=== PATIENT | female | born 1945 | race Caucasian/White ===

== ENCOUNTER 2017-04-03 06:48 | Observation (INO) ==
--- NOTE | 2017-04-03 07:07 | Emergency Department Note ---
Jorge A Tucker Hilary, am scribing for, and in the presence of, Cruz Vann MD 07: 03. Soo Tucker James D, MD, personally performed the services described in this documentation, ascribed by Nilsa Jules in my presence, and it is both accurate and complete 706 . Arrival - Arrival Chief Complaint: Chest Pain Stated Complaint: CP transfer ED Nursing Triage Note: Pt transferred from [facility] ER for Chest pain started around 0400 but is pain free now. Pt also had SOB and nausea. Mode of Arrival: Stretcher Limitations: No Limitations Source: Patient, RN Notes Reviewed Time Seen by Provider: 04/03/17 06:57 - History of Present Illness HPI Narrative: Pt is a 71 y/o female brought into the ED via EMS from [facility] ER for c/o chest pain which onset at 0430 but is now resolved. She confirms that the pain was across her chest, SOB, diaphoresis and nausea but denies vomiting. She reports that she has had a stent put in before but this pain was different. No other complaints or problems stated in the ED. Onset (ago): hour(s) Consistency: now resolved Severity: mild Severity scale (1-10): 1 Allergies/Adverse Reactions: Allergies Allergy/AdvReac Type Severity Reaction Status Date / Time phenytoin [From Dilantin] Allergy DIFFICULTY Verified 04/27/16 20:56 SWALLOWING Home Medications: Home Medications Medication Instructions Recorded Confirmed Type Aspirin [Ecotrin] 81 mg PO DAILY 04/27/16 07/16/16 History Escitalopram [Lexapro] 20 mg PO DAILY 04/27/16 07/16/16 History amLODIPine [Norvasc] 10 mg PO DAILY 04/27/16 07/16/16 History clonazePAM [Clonazepam] 1 mg PO BID 04/27/16 07/16/16 History Albuterol Sulfate [Ventolin HFA] 1 - 2 puffs PO Q6HR PRN 07/16/16 07/16/16 History Estradiol Tab [Estrace Tab] 1 tablet PO DAILY 07/16/16 07/16/16 History Losartan Potassium [Cozaar] 1 tablet PO DAILY 07/16/16 07/16/16 History Magnesium Oxide 400 mg PO DAILY 07/16/16 07/16/16 History Nebivolol [Bystolic] 1 tablet PO DAILY 07/16/16 07/16/16 History carBAMazepine TAB [TEGretol TAB] 1 tablet PO Q12HR 07/16/16 07/16/16 History Atorvastatin [Lipitor] 40 mg PO DAILY #30 tablet 07/18/16 Rx Ticagrelor [Brilinta] 90 mg PO BID #60 tablet 07/18/16 Rx HYDROcodone/ACETAMIN 5-325 [[place] 1 tablet PO Q6H #20 tablet 02/12/17 Rx 5-325] Review of System - Review of System 12 point system: reviewed and no additional remarkable complaints except as stated - Review of System Constitutional: Present: diaphoresis. Absent: fever Respiratory: Present: respiratory distress (SOB) Cardiovascular: Present: chest pain Gastrointestinal: Present: nausea. Absent: vomiting Medical,Surgical,& Family Hx - Social History Smoking Status: Former smoker Functional capacity: bed bound Exam Physical Examination: GENERAL: This is a chronically ill appearing female, well-developed in no apparent distress. VITAL SIGNS: Temperature: 98.9 Pulse: 54 Respiratory: 16 Blood Pressure: 148/ 85 O2Sat: 100 HEENT: Head is normocephalic and atraumatic. Pupils are equally round and reactive to light. Extraocular movement are intact. Oropharynx is benign with moist mucous membranes. NECK: Neck is soft and supple without tenderness. There are no masses. There is no lymphadenopathy. LUNGS: Lungs are clear to auscultation bilaterally. Chest rises symmetrically. There is no chest wall tenderness. CV: Heart is regular rate and rhythm without murmurs, rubs, or gallops. ABDOMEN: Abdomen is soft, non-tender to palpation. There are no abnormal masses palpated. There is no organomegaly. Bowel sounds are present and active. SKIN: Skin is warm and dry. No rash. EXTREMITIES: Patient has full range of motion without tenderness. There is no pedal edema. NEUROLOGIC: Awake, alert, and oriented x4. Cranial nerves II through XII are grossly intact. There are no motorsensory deficits. PSYCHIATRIC: Normal affect. Normal mood. Vital Signs: Vital Signs Temperature 98.9 F 04/03/17 06:59 Pulse Rate 54 L 04/03/17 06:59 Respiratory Rate 16 04/03/17 06:59 Blood Pressure 148/85 04/03/17 06:59 O2 Sat by Pulse Oximetry 100 04/03/17 06:51 Course - Consultations Consultation #1: Discussed with Dr. Sanders. Patient will be admitted to his service. Initial orders written for him. He will assume care of the patient upon arrival to the [facility]. Time: 07:06 Results - Labs Lab Results: I have reviewed the patients labs Labs: Lab performed at [facility] reviewed by me. Troponin is negative. - EKG EKG results: interpreted by ERMD - Impressions EKG: Sinus bradycardia with a rate of 53, nonspecific ST-T wave changes, normal axis. Disposition Clinical Impression: Chest pain, Coronary artery disease Case discussed with: patient Disposition: Still a Patient Condition: Stable Time of Disposition: 07:06
--- NOTE | 2017-04-03 08:07 | EKG Report ---
Stationary ECG Study [facility] ER Test Date: 04/03/2017 6:54:40 AM Pat Name: CARL MUHAMMAD Department: Room: EDWAIT Gender: F Nursing Resident: : 1945 Requested by: Cruz Green Order Number: [id number] Reading MD: NAV PEREZ Intervals [place] Rate: 53 P: 60 [place]: 133 QRS: 5 QRSD: 85 T: 73 QT: 449 QTc: 431 Interpretive Statements SINUS BRADYCARDIA MINIMAL ST DEPRESSION, CONSIDER ISCHEMIA Electronically Signed On 04-03-17 09:59:03 CDT by NAV PEREZ [email or web address]
[2017-04-03] MEDS ORDERED: MAGNESIUM SULF RIDER 4 GM in PREMIX 1 EACH IV PRN (08:35)
[2017-04-03] MEDS ORDERED: ONDANSETRON 4 MG/2 ML VIAL IV PRN (08:35)
[2017-04-03] MEDS ORDERED: MORPHINE 2 MG/1 ML SYRINGE IV PRN (08:35)
[2017-04-03] MEDS ORDERED: SODIUM CHLORIDE 0.9% 1,000 ML IV SCH (08:35)
[2017-04-03] MEDS ORDERED: MAGNESIUM SULF RIDER 2 GM in PREMIX 1 EACH IV PRN (08:35)
[2017-04-03] MEDS ORDERED: PANTOPRAZOLE 40 MG TABLET PO SCH (09:00)
--- NOTE | 2017-04-03 09:36 | Cardiology History & Physical ---
<Alcira Rae E - Last Filed: 04/03/17 09:21> Assessment and Plan - Time spent with patient Time spent with patient: Greater than 30 minutes (due to assessment, plan, and documentation) (1) Chest pain Status: Acute Assessment and plan: See plan of care listed below. Current Visit: Yes (2) Coronary artery disease Status: Chronic Assessment and plan: See plan of care listed below. Current Visit: Yes (3) Hypertension Status: Chronic Assessment and plan: See plan of care listed below. Current Visit: No Qualifiers: Hypertension type: essential hypertension Qualified Code(s): I10 - Essential (primary) hypertension (4) Dyslipidemia Status: Chronic Assessment and plan: See plan of care listed below. Current Visit: No (5) Seizure disorder Status: Chronic Assessment and plan: See plan of care listed below. Current Visit: No (6) Nicotine addiction Status: Chronic Assessment and plan: See plan of care listed below. Current Visit: No Qualifiers: Nicotine product type: cigarettes (7) Flea infestation Status: Acute Assessment and plan: See plan of care listed below. Current Visit: Yes History of Present Illness Chief complaint: chest pain History of present illness: Gas Engine Performance Engineer: Dr. Sanders PCP: Dr. Gordon Ms. Carlson is a 71 year old female with history of coronary artery disease, hypertension, hypercholesterolemia, seizure disorder. She is a former heavy smoker having quit in September 2016 following a large right CVA 2015 with intracerebral bleed for which she was treated at [facility] [place] [facility] for 1 month. [place] [address] with mid LAD stent, patent circumflex and RCA, ejection fraction 55-60%. Ms. Carlson presented to our facility as a transfer from [facility] in [place] for further evaluation of chest pain which began around 4: 00 this morning. She reports the pain woke her up and felt as if someone was stabbing her. She reports it lasted for a little over 30 minutes and was relieved with sublingual nitroglycerin. She also woke up feeling short of breath as if "something was grabbing her throat." She also describes associated symptoms of nausea, dizziness, palpitations. She tells me that this pain feels different from the pain that she had before her stent was placed but this time feels a little worse. The patient is very debilitated and is unable to stand without help. She has severe left upper and left lower extremity weakness. She is now wearing diapers and requires the use of a wheelchair frequently at home. Her cardiac biomarkers have been negative thus far and her EKG is unremarkable. Lab work from the outlying facility includes: Hemoglobin 10.1, hematocrit 31.7, white blood cell count 6.84, platelet count 251, sodium 146, potassium 3.6, creatinine 0.6, BUN 14, GFR 105. Assessment/plan: 1. Chest pain - She now presents with symptoms of chest pain and dyspnea. Thus far, she has ruled out for ND. After further discussion with Dr. Sanders, although her symptoms are not completely typical, given her recent history of NSTEMI, we will proceed with Lexiscan stress testing. She is unable to complete exercise stress testing due to recent stroke with left sided weakness. 2. Coronary artery disease - [place] [address] with mid LAD stent, patent circumflex and RCA, ejection fraction 55-60%. She now presents with symptoms of chest pain and dyspnea. Thus far, she has ruled out for ND. Will further discuss further cardiac evaluation with stress testing or C with Dr. Sanders and await his recommendations. 3. Hypertension-currently suboptimally controlled. We will continue home medications, monitor, and adjust accordingly. 4. Hypercholesterolemia -continue lipid-lowering agent. Will recheck lipid panel. 5. Seizure disorder -continue home medications. 6. Former tobacco abuse -in remission, long history of tobacco abuse but has not smoked since her stroke in September 2016. 7. Flea infestation-discuss with infection process control manager Austen Turner. Patient will be placed with Hibiclens and moved to new room while her room is fumigated. Patient's at bedside will be offered Hibiclens bath and change of clothes so as not to reinfect the patient. Will await further recommendations from Dr. Sanders. Home Medications Medication Instructions Recorded Confirmed Type Aspirin [Ecotrin] 81 mg PO DAILY 04/27/16 04/03/17 History Escitalopram [Lexapro] 20 mg PO DAILY 04/27/16 04/03/17 History amLODIPine [Norvasc] 10 mg PO DAILY 04/27/16 04/03/17 History Albuterol Sulfate [Ventolin HFA] 1 - 2 puffs PO Q6HR PRN 07/16/16 04/03/17 History Losartan Potassium [Cozaar] 1 tablet PO DAILY 07/16/16 04/03/17 History carBAMazepine TAB [TEGretol TAB] 1 tablet PO Q12HR 07/16/16 04/03/17 History Atorvastatin [Lipitor] 40 mg PO DAILY #30 tablet 07/18/16 04/03/17 Rx Carvedilol [Carvedilol] 12.5 mg PO BID 04/03/17 04/03/17 History Famotidine 10 mg PO BID 04/03/17 04/03/17 History Ranitidine Tab [Zantac Tab] 75 mg PO BEDTIME 04/03/17 04/03/17 History Allergies Allergy/AdvReac Type Severity Reaction Status Date / Time phenytoin [From Dilantin] Allergy DIFFICULTY Verified 04/27/16 20:56 SWALLOWING Review of systems: - Constitutional: Present: pruritis, As per HPI. Absent: anorexia, chills, daytime sleepiness, excessive sweating, fever(s), frequent falls, headache(s), increased appetite, lethargy, malaise, night sweats, stops breathing during sleep, weakness, weight gain, weight loss, fatigue. - EENT Eyes: Present: As per HPI. Absent: blurry vision, diplopia, loss of vision Ears: Present: As per HPI. Absent: decreased hearing, ear discharge, ear pain Nose, mouth and throat: Present: As per HPI. Absent: dysphagia, epistaxis, headache(s), hoarseness, lip swelling, nasal congestion, neck mass, neck pain, sinus pressure, sore throat, throat swelling, tongue swelling, vertigo - Cardiovascular: Present: chest pain at rest, dyspnea, dyspnea on exertion, edema, palpitations, as per HPI. Absent: chest pain with activity, claudication , diaphoresis, radiating jaw, neck or arm pain, lightheadedness, orthopnea, PND - Respiratory: Present: dyspnea, dyspnea on exertion, snoring, as per HPI. Absent: cough, hemoptysis, wheezing, pain on inspiration - Gastrointestinal: Present: As per HPI. Absent: abdominal pain, bloating, change in bowel habits, constipation, diarrhea, heartburn, hematemesis, hematochezia, loose stools, melena, nausea, vomiting - Genitourinary: Present: As per HPI. Absent: difficulty urinating, dysuria, flank pain, hematuria, nocturia, urinary frequency, urinary incontinence - Musculoskeletal: Present: muscle weakness, As per HPI. Absent: arthralgias, back pain, joint swelling, limited range of motion, muscle cramps, myalgias - Neurological: Present: abnormal gait, dizziness, As per HPI. Absent: abnormal speech, behavioral changes, confusion, convulsions, disequilibrium, focal weakness, frequent falls, headache(s), memory loss, numbness, paresthesias, radicular pain, syncope, tremor(s) - Psychiatric: Present: As per HPI. Absent: anxiety, confusion, depression, panic attacks - Endocrine: Present: As per HPI. Absent: cold intolerance, fatigue, heat intolerance, polydipsia, polyphagia - Hematologic/Lymphatic: Present: As per HPI. Absent: easy bleeding, easy bruising, lymphadenopathy Medical,Surgical,& Family Hx - Medical History Cardio: History of: CAD, Hypertension, ND Neurology: History of: Cerebrovascular Accident, Seizures Endocrine: History of: Dyslipidemia Respiratory: History of: COPD Gastrointestinal: History of: GERD Other: History of: Miscellaneous Medical Problems (Hypoglycemia) - Surgical History Cardiac Surgeries: Sugical HX of: Cardiac Catheterization Abdominal Surgeries: Surgical HX of: Abdominal Surgery (TIERNEY), Appendectomy Reproductive Surgeries: Surgical HX of;: Gynecologic Surgery, Hysterectomy - Family History Family History: Reports;: Family Diabetes (mother), Family Heart Disease (father -cabg), Family Hypertension - Social History Smoking Status: Former smoker Frequency of Alcohol Use: None Type of Drug Use: None Marital Status: Lives With:: Spouse Functional capacity: wheelchair bound Cardiology Physical Exam - Constitutional Vitals: Vital Signs Temp Pulse Resp BP Pulse Ox 97.9 F 55 L 17 155/85 98 04/03/17 08:36 04/03/17 08:36 04/03/17 08:36 04/03/17 08:36 04/03/17 08:36 Intake and Output 04/02/17 04/03/17 04/03/17 22:59 06:59 14:59 Other: Weight 89 lb Exam: General appearance: Pleasant and cooperative. Under weight, no acute distress. Appears feeble and debilitated - Head Head exam: Present: normal inspection, normocephalic, atraumatic. Absent: hematoma, laceration - Eye Eye exam: Present: EOMI. Absent: conjunctival injection, nystagmus, periorbital swelling, scleral icterus, laceration to eyelids Pupils: Present: PERRL. Absent: constricted, dilated, fixed, irregular, unequal - ENT ENT exam: Present: Edentulous, normal external ear exam - Neck Neck exam: Present: normal inspection. Absent: lymphadenopathy, meningismus, tenderness, thyromegaly - Respiratory Respiratory exam: Present: clear to auscultation bilaterally. Absent: accessory muscle use, chest wall tenderness - Cardiovascular Cardiovascular exam: Present: bilateral carotid bruit, regular rate and rhythm. soft systolic murmur Absent: gallop, JVD, rubs, - GI/Abdominal GI/Abdominal exam: Present: normal bowel sounds, soft. Absent: distended, firm , guarding, hernia, mass, tenderness, rebound. - Extremities Exam Extremities exam: Present: normal inspection, normal capillary refill. Upper extremity pulses 2+. Lower extremity pulses 2+. Foot drop to BLE. Absent: calf tenderness, edema -Musculoskeletal Exam Musculoskeletal: Present: No Fluid Collection, No Pain, Normal Range of Motion - Back Exam Back exam: Present: normal inspection. Absent: muscle spasm, vertebral tenderness - Neurological Exam Neurological exam: Present: alert, oriented X3, grossly intact without resting or essential tremor - Psychiatric Psychiatric exam: Present: normal affect, normal mood - Skin Skin exam: Present: normal color, warm, dry, intact. Absent: cyanosis, diaphoretic, rash, urticaria Result/EKG - Labs Lab Results: I have reviewed the past 24 hour labs Labs: Laboratory Results - last 24 hr 04/03/17 07:15 Troponin I < 0.015 - EKG EKG results: interpreted by me, sinus rhythm EKG shows: bradycardia <Jeramy Sanders - Last Filed: 04/03/17 14:58> History of Present Illness History of present illness: Cardiology addendum Chart reviewed patient examined and discussed with nurse Alcira Rae NP. Atypical chest pain. Benign EKG. Negative troponin. That is post mid LAD stent July 2016. RCA and circumflex were patent with normal ejection fraction 55-60%. Status post large intracerebral bleed stroke/September 25, 2016. Former heavy tobacco abuse Seizure disorder Plan Lexiscan cardiac stress test Cardiology Physical Exam - Constitutional Vitals: Vital Signs Temp Pulse Resp BP Pulse Ox 97.8 F 64 18 145/70 96 04/03/17 11:57 04/03/17 11:57 04/03/17 11:57 04/03/17 11:57 04/03/17 11:57 Intake and Output 04/02/17 04/03/17 04/03/17 23:59 07:59 15:59 Other: Weight 40.37 kg Patient Weight 04/03/17 23:59 Weight 40.37 kg Result/EKG - Labs Labs: Laboratory Results - last 24 hr 04/03/17 04/03/17 07:15 09:39 Total Creatine Kinase 44 CK-MB (CK-2) < 1.0 Troponin I < 0.015 < 0.015 Triglycerides 83 Cholesterol 137 LDL Cholesterol 65.0 VLDL Cholesterol 16.6 HDL Cholesterol 53 Heart Disease Risk Ratio 2.58
[2017-04-03 10:26] LABS: Cholesterol 137 MG/DL (50-200); HDL Cholesterol 53 MG/DL (40-60); Risk Ratio 2.58; Triglycerides 83 MG/DL (2-150); Troponin I Only < 0.015 NG/ML (0.00-0.045); VLDL CHOLESTEROL 16.6 MG/DL
[2017-04-03] MEDS ORDERED: REGADENOSON 0.4 MG/5 ML SYRINGE IV ONE (10:48)
--- NOTE | 2017-04-03 11:18 | Event Note ---
Patient underwent nuclear stress testing with Lexiscan Protocol only due to patient's inability to walk from prior CVA. Patient had no chest pain, dizziness , lightheadedness or syncope. She did have some mild dyspnea, nausea, and vomiting. Maximum HR achieved: 97 with THR 150. Patient had no significant EKG changes with appropriate blood pressure response. Patient now to nuclear medicine for final scan. Dr. Sanders to read, interpret, and advise.
--- NOTE | 2017-04-03 14:43 | Nuclear Medicine Report ---
PROCEDURE: LEXISCAN CARDIOLITE GATED SPECT PERFUSION STUDY. INITIAL IMPRESSION: 1. A 71-YEAR-OLD WOMAN WITH ATYPICAL CHEST PAIN. 2. STATUS POST MID LAD STENT. 3. ABNORMAL ELECTROCARDIOGRAM. FINAL IMPRESSION: NORMAL LEXISCAN CARDIOLITE GATED SPECT PERFUSION STUDY. I. DESCRIPTION OF PROCEDURE: The patient received 10.0 mCi of Technetium-99m Cardiolite IV and rest images were obtained in the routine manner 20 minutes later. The patient then received 0.4 mg IV Le xiscan followed by 30.0 mCi of Technetium-99m Cardiolite IV and pharmacologic stress images were obta ined in the routine manner 20 minutes later. Serial electrocardiograms were performed. The initial blood pressure was 100/70 and it was 140/80 immediate post Lexiscan. The resting heart rate was 57 a nd the peak heart rate was 97. II. RESULTS: The patient had no chest pain or arrhythmias and tolerate Lexiscan infusion well. The resting EKG demonstrates sinus bradycardia with preserved R-waves and ST-T wave changes. With pharm acologic stress, no diagnostic EKG changes occurred. No arrhythmias. Tomographic imaging demonstrates homogeneous uptake of radioisotope in all segments. There is no ivory dence for ischemia or scar. Gated SPECT imaging demonstrates normal wall motion and thickening in al l segments. The calculated ejection fraction is 63%. III. FINAL IMPRESSION: 1. CLINICALLY AND ELECTROCARDIOGRAPHICALLY NEGATIVE. 2. SCINTIGRAPHICALLY NORMAL PERFUSION STUDY. IV. DISPOSITION: The patient should be reassured regarding the lack of any evidence for significant coronary artery disease at this time. She had no chest pain or diagnostic EKG changes and tomograph ic imaging is normal. Her LAD stent site from August 2016 remains widely patent. This is a low-ri sk scan. Continued medical therapy, risk factor modification recommended. Her current chest pain is not cardiac in nature. Procedure performed and interpreted at [facility] Department of Radiology.
[2017-04-03] MEDS ORDERED: ASPIRIN EC 81 MG TABLET PO SCH (15:00)
[2017-04-03] MEDS ORDERED: amLODIPine 10 MG TABLET PO SCH (15:00)
[2017-04-03] MEDS ORDERED: ATORVASTATIN 40 MG TABLET PO SCH (15:00)
--- NOTE | 2017-04-03 15:02 | Discharge Summary ---
Hospital Course - Hospital Course Hospital Course: Credit Collections Clerk: Dr. Sanders PCP: Dr. Gordon Ms. Carlson is a 71 year old female with history of coronary artery disease, hypertension, hypercholesterolemia, seizure disorder who presented to our facility as a transfer from [facility] in [place] for further evaluation of chest pain which began around 4:00 this morning. The patient is very debilitated and is unable to stand without help. She has severe left upper and left lower extremity weakness. She is now wearing diapers and requires the use of a wheelchair frequently at home. Her cardiac biomarkers have been negative and her EKG is unremarkable. She underwent Lexiscan stress testing which was found to have a scintigraphically normal perfusion study. Her chest pain she had this morning is non-cardiac in nature. She has had no recurrent pain since. Her vital signs and labwork have been stable. She has now been felt to have met maximum benefit from hospitalization and will be discharged home in stable condition. Of note, during admission, she was found to be infested with fleas. We discussed this with our Infection New Patient Escort, Austen Turner and followed her recommendations regarding treatment. She is to follow up with Dr. Sanders in 3-4 months with EKG. IF she has recurrent pain, she may see her primary care provider or seek further assistance in the emergency department but she can be reassured regarding the lack of any evidence for significant coronary artery disease at this time. - Time spent with patient Time with patient DS: Greater than 30 minutes Diagnosis - Discharge Diagnosis (1) Chest pain Status: Resolved (2) Coronary artery disease Status: Chronic (3) Hypertension Status: Chronic (4) Dyslipidemia Status: Chronic (5) Seizure disorder Status: Chronic (6) Nicotine addiction Status: Chronic (7) Flea infestation Status: Acute Specialty Discharge - Follow Up or Referrals Follow up with: Jeramy Sanders MD [Physician] - (Follow up with Dr. Sanders in 3-4 months with EKG. RTC sooner if needed. ) Discharge Plan - Discharge Data Disposition: Disch To Home/Self Care Condition at Discharge: Stable Discharge Diet: heart healthy Activity: resume usual activities as tolerated Hygiene: no restrictions Weight Bearing at Discharge: full weight bearing, weight bear as tolerated Contact your physician if you experience:: fever over 101, Difficulty voiding, Redness or swelling, Nausea/Vomiting, Shortness of breath, Bleeding, pain uncontrolled by pain medications - Discharge Medications New Carvedilol [Coreg] 3.125 mg PO BID W/MEALS #60 tablet Continue amLODIPine [Norvasc] 10 mg PO DAILY Escitalopram [Lexapro] 20 mg PO DAILY Aspirin [Ecotrin] 81 mg PO DAILY carBAMazepine TAB [TEGretol TAB] 1 tablet PO Q12HR Losartan Potassium [Cozaar] 100 mg PO DAILY Albuterol Sulfate [Ventolin HFA] 1 - 2 puffs PO Q6HR PRN PRN Reason: Shortness Of Breath/Wheezing Atorvastatin [Lipitor] 40 mg PO DAILY #30 tablet Famotidine 10 mg PO BID Ranitidine Tab [Zantac Tab] 75 mg PO BEDTIME Discontinued Carvedilol [Carvedilol] 12.5 mg PO BID - Follow Up or Referral - Forms/Instructions Exam - Constitutional Vitals: Period Temp Pulse Resp BP Sys/Masterson Pulse Ox Last 24 Hr 97.8 F-98.9 F 54-64 16-18 145-167/70-85 96-100 Exam: General appearance: Pleasant and cooperative. Under weight, no acute distress. Appears feeble and debilitated - Head Head exam: Present: normal inspection, normocephalic, atraumatic. Absent: hematoma, laceration - Eye Eye exam: Present: EOMI. Absent: conjunctival injection, nystagmus, periorbital swelling, scleral icterus, laceration to eyelids Pupils: Present: PERRL. Absent: constricted, dilated, fixed, irregular, unequal - ENT ENT exam: Present: Edentulous, normal external ear exam - Neck Neck exam: Present: normal inspection. Absent: lymphadenopathy, meningismus, tenderness, thyromegaly - Respiratory Respiratory exam: Present: clear to auscultation bilaterally. Absent: accessory muscle use, chest wall tenderness - Cardiovascular Cardiovascular exam: Present: bilateral carotid bruit, regular rate and rhythm. soft systolic murmur Absent: gallop, JVD, rubs, - GI/Abdominal GI/Abdominal exam: Present: normal bowel sounds, soft. Absent: distended, firm , guarding, hernia, mass, tenderness, rebound. - Extremities Exam Extremities exam: Present: normal inspection, normal capillary refill. Upper extremity pulses 2+. Lower extremity pulses 2+. Foot drop to BLE. Absent: calf tenderness, edema -Musculoskeletal Exam Musculoskeletal: Present: No Fluid Collection, No Pain, Normal Range of Motion - Back Exam Back exam: Present: normal inspection. Absent: muscle spasm, vertebral tenderness - Neurological Exam Neurological exam: Present: alert, oriented X3, grossly intact without resting or essential tremor - Psychiatric Psychiatric exam: Present: normal affect, normal mood - Skin Skin exam: Present: normal color, warm, dry, intact. Absent: cyanosis, diaphoretic, rash, urticaria Discharge Results Procedures and tests throughout hospitalization: Pending Orders 04/03/17 15:32 Troponin,CKMB & Ck Total Q6H 04/04/17 04:00 Basic Metabolic Panel w/Mg IN AM Comp Blood Count Auto Diff IN AM 04/05/17 04:00 Basic Metabolic Panel w/Mg IN AM Comp Blood Count Auto Diff IN AM 04/03/17 : PROCEDURE: LEXISCAN CARDIOLITE GATED SPECT PERFUSION STUDY. INITIAL IMPRESSION: 1. A 71-YEAR-OLD WOMAN WITH ATYPICAL CHEST PAIN. 2. STATUS POST MID LAD STENT. 3. ABNORMAL ELECTROCARDIOGRAM. III. FINAL IMPRESSION: 1. CLINICALLY AND ELECTROCARDIOGRAPHICALLY NEGATIVE. 2. SCINTIGRAPHICALLY NORMAL PERFUSION STUDY. Labs on day of discharge: Labs from last 24 hours 04/03/17 04/03/17 09:39 07:15 Total Creatine Kinase 44 CK-MB (CK-2) < 1.0 Troponin I < 0.015 < 0.015 Triglycerides 83 Cholesterol 137 LDL Cholesterol 65.0 VLDL Cholesterol 16.6 HDL Cholesterol 53 Heart Disease Risk Ratio 2.58 DS: Provider Date of admission: 04/03/17 07:02 Primary care physician: . No PCP Attending physician on admission: Jeramy Sanders MD Discharging clinician: CATHERINE Hodges Expected date of discharge: 04/03/17
[2017-04-03] MEDS ORDERED: ALBUTEROL 2.5 MG/3 ML NEB RESP TX PRN (15:30)
[2017-04-03] MEDS ORDERED: LOSARTAN 50 MG TABLET PO SCH (15:30)
[2017-04-03 16:00] VITALS: BP 147/68
[2017-04-03] MEDS ORDERED: CARVEDILOL 3.125 MG TABLET PO SCH (17:00)
[2017-04-03] MEDS ORDERED: ENOXAPARIN 40 MG/0.4 ML SYRINGE SUBCUT SCH (19:30)
[2017-04-03] MEDS ORDERED: FAMOTIDINE 20 MG TABLET PO SCH (21:00)
[2017-04-03] MEDS ORDERED: carBAMazepine 200 MG TABLET PO SCH (21:00)
[2017-04-03] MEDS ORDERED: FAMOTIDINE 10 MG PO SCH (21:00)
--- NOTE | 2017-04-04 08:59 | EKG Report ---
Stationary ECG Study [facility] Test Date: 04/03/2017 11:13:49 AM Pat Name: CARL MUHAMMAD Department: Room: 273 Gender: F Sales Promoter: : 1945 Requested by: Jeramy Sanders Order Number: [id number] Reading MD: NAV PEREZ Intervals [place] Rate: 83 P: 39 IN: 127 QRS: 16 QRSD: 83 T: 54 QT: 398 QTc: 438 Interpretive Statements SINUS RHYTHM at [address] DEVIATION AND MODERATE T-WAVE ABNORMALITY, CONSIDER ISCHEMIA Electronically Signed On 04-04-17 13:16:01 CDT by NAV PEREZ [email or web address]
[2017-04-04] MEDS ORDERED: ESCITALOPRAM 10 MG TABLET PO SCH (09:00)
== END 2017-04-03 17:17 | disposition home or self-care (01) ==
LOC: EDUNIT# → EDBD → N.ED 06:48 → N.EDINP 06:48 → N.TELES 08:09
PROVIDERS: ADMIT Internal Medicine Cardiovascular Disease; ATTEND Internal Medicine Cardiovascular Disease

== ENCOUNTER 2018-09-16 22:44 | Inpatient (IN) ==
[2018-09-17] MEDS ORDERED: NICOTINE 21 MG/24 HR PATCH TRANSDERM PRN (02:40)
[2018-09-17] MEDS ORDERED: ACETAMINOPHEN 325 MG TABLET PO PRN (02:40)
[2018-09-17] MEDS ORDERED: MAGNESIUM SULF RIDER 4 GM in PREMIX 1 EACH IV PRN (02:40)
[2018-09-17] MEDS ORDERED: guaiFENesin/DM ER 600-30 MG TABLET PO PRN (02:40)
[2018-09-17] MEDS ORDERED: MAGNESIUM SULF RIDER 2 GM in PREMIX 1 EACH IV PRN (02:40)
[2018-09-17] MEDS ORDERED: ONDANSETRON 4 MG/2 ML VIAL IV PRN (02:40)
[2018-09-17] MEDS ORDERED: diphenhydrAMINE CAP 25 MG CAPSULE PO PRN (02:40)
[2018-09-17] MEDS ORDERED: MORPHINE 4 MG/1 ML VIAL IV PRN (02:40)
[2018-09-17] MEDS ORDERED: LACTULOSE 20 GM/30 ML UDCUP PO PRN (02:40)
[2018-09-17 05:51] LABS: Basophils % 0.6 % (0.0-0.8); Eosinophils # 0.4 10*3/uL (0.0-0.87); Eosinophils % 6.2 % (0.00-10.9); Hemoglobin 10.9 GM/DL (12.0-16.0); Immature Granulocytes % 0.2 %; Immature Granulocytes Absolute 0.01 #; Lymphocytes # 2.5 10*3/uL (1.4-4.0); Lymphocytes % 37.4 % (21.3-54.2); Mean Corpuscular HGB Conc 32.1 GM/DL (32-36); Mean Corpuscular Hemoglobin 29 PG (27-34); Mean Corpuscular Volume 90.4 FL (87-102); Mean Platelet Volume 9.8 FL (9.6-12.0); Monocytes # 0.5 10*3/uL (0.11-0.8); Monocytes % 7.6 % (1.7-12.7); Neutrophils # 3.2 10*3/uL (1.4-7.4); Platelet Count 331 T/CUMM (130-400); Red Blood Count 3.76 MC/CUMM (3.8-5.5); Red Cell Distribution Width 12.3 % (9.3-17.3); White Blood Count 6.6 T/CUMM (4-12)
[2018-09-17 06:30] LABS: Alanine Aminotransferase 142 U/L (13-56); Albumin 2.9 G/DL (3.4-5.0); Alkaline Phosphatase 161 U/L (45-117); Aspartate Amino Transferase 170 U/L (0-37); Bilirubin,Total < 0.39 MG/DL (0.2-1.0); Blood Urea Nitrogen 22 MG/DL (7-18); Calcium 8.7 MG/DL (8.5-10.1); Cholesterol 146 MG/DL (50-200); Glucose 96 MG/DL (74-106); HDL Cholesterol 46 MG/DL (40-60); Osmolality,Calculated 283.3 MOS/KG (273-304); Potassium 3.2 MMOL/L (3.5-5.1); Risk Ratio 3.17; Sodium 141 MMOL/L (136-145); Total Protein 7.1 G/DL (6.4-8.3); Triglycerides 73 MG/DL (2-150); VLDL CHOLESTEROL 14.6 MG/DL
[2018-09-17] MEDS ORDERED: POTASSIUM CHLORIDE RIDER 10 MEQ in PREMIX 1 EACH IV PRN (08:54)
[2018-09-17] MEDS ORDERED: ATORVASTATIN 20 MG TABLET PO SCH (09:00)
[2018-09-17] MEDS: LOSARTAN 50 MG TABLET PO SCH (09:14)
[2018-09-17] MEDS: ESCITALOPRAM 10 MG TABLET PO SCH (09:14)
[2018-09-17] MEDS: FUROSEMIDE 20 MG TABLET PO SCH (09:14)
[2018-09-17] MEDS: amLODIPine 5 MG TABLET PO SCH (09:15)
[2018-09-17] MEDS: carBAMazepine 200 MG TABLET PO SCH ×2 (09:15→20:55)
[2018-09-17] MEDS: hydrALAZINE 25 MG TABLET PO SCH ×2 (09:15→20:55)
[2018-09-17] MEDS: ENOXAPARIN 40 MG/0.4 ML SYRINGE SUBCUT SCH (09:15)
[2018-09-17] MEDS: ASPIRIN EC 81 MG TABLET PO SCH (09:15)
[2018-09-17] MEDS: PANTOPRAZOLE 40 MG TABLET PO SCH (09:15)
[2018-09-17] MEDS: hydroCHLOROthiazide 25 MG TABLET PO SCH (09:15)
[2018-09-17] MEDS: POTASSIUM CHLORIDE 20 MEQ TABLET PO PRN ×3 (10:39→16:01)
[2018-09-17 15:03] LABS: Apearance,Urine Slightly Hazy (Clear); Bilirubin,Urine Negative (Negative); Blood, Urine Negative (Negative); Glucose,Urine (UA) Negative (Negative); Hyaline Casts,Urine 32 /LPF (0-3); Ketones,Urine Negative (Negative); Mucus,Urine Occasional /LPF (Occasional); Nitrite,Urine Negative (Negative); Protein,Urine Negative; RBC,Urine 2 /HPF (0-4); Squamous Epithelial Cell,Urine Occasional /HPF (0-10); Urine Color Yellow (Yellow); Urine Specific Gravity 1.014 (1.001-1.035); Urine Urobilinogen < 2.0 EU/DL (0.2-1.0); WBC,Urine 23 /HPF (0-6)
[2018-09-17] MEDS: CARVEDILOL 3.125 MG TABLET PO SCH (16:01)
[2018-09-17] MEDS ORDERED: MIRTAZAPINE 15 MG TABLET PO SCH (21:00)
[2018-09-18 05:14] LABS: Basophils # 0.1 10*3/uL (0.0-0.2); Basophils % 0.8 % (0.0-0.8); Eosinophils # 0.5 10*3/uL (0.0-0.87); Eosinophils % 8.1 % (0.00-10.9); Hematocrit 33.2 VOL% (35.7-47.0); Hemoglobin 10.6 GM/DL (12.0-16.0); Immature Granulocytes % 0.3 %; Immature Granulocytes Absolute 0.02 #; Lymphocytes # 2.5 10*3/uL (1.4-4.0); Lymphocytes % 41.7 % (21.3-54.2); Mean Corpuscular HGB Conc 31.9 GM/DL (32-36); Mean Corpuscular Hemoglobin 29 PG (27-34); Mean Platelet Volume 9.8 FL (9.6-12.0); Monocytes # 0.4 10*3/uL (0.11-0.8); Monocytes % 7.2 % (1.7-12.7); Neutrophils # 2.5 10*3/uL (1.4-7.4); Neutrophils % 41.9 % (38.7-73.9); Platelet Count 316 T/CUMM (130-400); Red Blood Count 3.65 MC/CUMM (3.8-5.5); Red Cell Distribution Width 12.4 % (9.3-17.3)
[2018-09-18 05:30] LABS: Bilirubin,Total 0.5 MG/DL (0.2-1.0); Calcium 8.9 MG/DL (8.5-10.1); Osmolality,Calculated 284.3 MOS/KG (273-304); Potassium 4.4 MMOL/L (3.5-5.1); Total Protein 6.9 G/DL (6.4-8.3)
[2018-09-18 07:50] LABS: Alanine Aminotransferase 145 U/L (13-56); Albumin 2.7 G/DL (3.4-5.0); Alkaline Phosphatase 171 U/L (45-117); Aspartate Amino Transferase 173 U/L (0-37); Bilirubin,Direct < 0.100 MG/DL (0.0-0.20); Bilirubin,Indirect 0.3 MG/DL (0.0-1.0); Bilirubin,Total < 0.39 MG/DL (0.2-1.0)
[2018-09-18] MEDS ORDERED: REGADENOSON 0.4 MG/5 ML SYRINGE IV ONE (09:03)
[2018-09-18] MEDS: CARVEDILOL 3.125 MG TABLET PO SCH ×2 (12:35→16:34)
[2018-09-18] MEDS: hydroCHLOROthiazide 25 MG TABLET PO SCH (12:35)
[2018-09-18] MEDS: carBAMazepine 200 MG TABLET PO SCH (12:35)
[2018-09-18] MEDS: LOSARTAN 50 MG TABLET PO SCH (12:35)
[2018-09-18] MEDS: hydrALAZINE 25 MG TABLET PO SCH (12:35)
[2018-09-18] MEDS: amLODIPine 5 MG TABLET PO SCH (12:36)
[2018-09-18] MEDS: ASPIRIN EC 81 MG TABLET PO SCH (12:36)
[2018-09-18] MEDS: FUROSEMIDE 20 MG TABLET PO SCH (12:36)
[2018-09-18] MEDS: ESCITALOPRAM 10 MG TABLET PO SCH (12:36)
[2018-09-18] MEDS: PANTOPRAZOLE 40 MG TABLET PO SCH (12:36)
[2018-09-18] MEDS: ENOXAPARIN 40 MG/0.4 ML SYRINGE SUBCUT SCH (12:38)
[2018-09-18 17:23] VITALS: BP 113/58
== END 2018-09-18 17:28 | disposition home or self-care (01) | DRG 313 ==
LOC: N.TELES 09-17 01:54
PROVIDERS: ADMIT Internal Medicine; ATTEND Internal Medicine

== ENCOUNTER 2019-05-31 18:53 | Observation (INO) ==
[2019-05-31] MEDS ORDERED: NICOTINE 21 MG/24 HR PATCH TRANSDERM PRN (22:24)
[2019-05-31] MEDS ORDERED: diphenhydrAMINE CAP 25 MG CAPSULE PO PRN (22:24)
[2019-05-31] MEDS ORDERED: ONDANSETRON 4 MG/2 ML VIAL IV PRN (22:24)
[2019-05-31] MEDS ORDERED: MORPHINE 4 MG/1 ML VIAL IV PRN (22:24)
[2019-05-31 23:32] LABS: Alanine Aminotransferase 47 U/L (13-56); Albumin 3.4 G/DL (3.4-5.0); Alkaline Phosphatase 132 U/L (45-117); Aspartate Amino Transferase 58 U/L (0-37); Bilirubin,Total < 0.39 MG/DL (0.2-1.0); Blood Urea Nitrogen 17 MG/DL (7-18); Calcium 8.5 MG/DL (8.5-10.1); Glucose 92 MG/DL (74-106); HDL Cholesterol 62 MG/DL (40-60); Osmolality,Calculated 291.6 MOS/KG (273-304); Risk Ratio 2.19; Total Protein 6.6 G/DL (6.4-8.3); Triglycerides 56 MG/DL (2-150); VLDL CHOLESTEROL 11.2 MG/DL
[2019-06-01 00:39] LABS: Basophils # 0.1 10*3/uL (0.0-0.2); Basophils % 0.8 % (0.0-0.8); Eosinophils # 0.3 10*3/uL (0.0-0.87); Eosinophils % 5.3 % (0.00-10.9); Hematocrit 33.4 VOL% (35.7-47.0); Hemoglobin 10.8 GM/DL (12.0-16.0); Immature Granulocytes % 0.6 %; Immature Granulocytes Absolute 0.04 #; Lymphocytes # 2.7 10*3/uL (1.4-4.0); Lymphocytes % 42.3 % (21.3-54.2); Mean Corpuscular HGB Conc 32.3 GM/DL (32-36); Mean Corpuscular Volume 92.3 FL (87-102); Mean Platelet Volume 11.2 FL (9.6-12.0); Monocytes % 6.6 % (1.7-12.7); Neutrophils % 44.4 % (38.7-73.9); Platelet Count 183 T/CUMM (130-400); Red Blood Count 3.62 MC/CUMM (3.8-5.5); Red Cell Distribution Width 12.4 % (9.3-17.3); White Blood Count 6.5 T/CUMM (4-12)
[2019-06-01] MEDS: ACETAMINOPHEN 325 MG TABLET PO PRN ×2 (06:38→18:02)
[2019-06-01] MEDS: PANTOPRAZOLE 40 MG TABLET PO SCH (08:27)
[2019-06-01] MEDS: POTASSIUM CHLORIDE 20 MEQ TABLET PO PRN ×3 (10:45→14:47)
[2019-06-02 08:34] VITALS: BP 124/65
[2019-06-02] MEDS ORDERED: NITROGLYCERIN SL 0.4 MG TABLET SL PRN (08:47)
[2019-06-02] MEDS ORDERED: ATORVASTATIN 20 MG TABLET PO SCH (09:00)
[2019-06-02] MEDS ORDERED: ASPIRIN EC 81 MG TABLET PO SCH (09:00)
[2019-06-02] MEDS: PANTOPRAZOLE 40 MG TABLET PO SCH (09:23)
== END 2019-06-02 11:48 | disposition home or self-care (01) ==
LOC: N.TELES → SUATTDRO 20:48
PROVIDERS: ADMIT Hospitalist; ATTEND Hospitalist

== ENCOUNTER 2021-08-13 18:02 | Inpatient (IN) ==
[2021-08-13 18:26] LABS: Basophils % 0.8 % (0.0-0.8); Eosinophils # 0.1 10*3/uL (0.0-0.87); Eosinophils % 3.6 % (0.00-10.9); Hematocrit 33.4 VOL% (35.7-47.0); Hemoglobin 10.7 GM/DL (12.0-16.0); Immature Granulocytes % 0.3 %; Immature Granulocytes Absolute 0.01 #; Lymphocytes # 1.5 10*3/uL (1.4-4.0); Lymphocytes % 37.9 % (21.3-54.2); Mean Corpuscular Volume 92.5 FL (87-102); Mean Platelet Volume 9.6 FL (9.6-12.0); Monocytes % 10.2 % (1.7-12.7); Neutrophils % 47.2 % (38.7-73.9); Platelet Count 292 T/CUMM (130-400); Red Blood Count 3.61 MC/CUMM (3.8-5.5); Red Cell Distribution Width 13.7 % (9.3-17.3); White Blood Count 3.9 T/CUMM (4-12)
[2021-08-13] MEDS ORDERED: LACTATED RINGERS 1,000 ML IV ONE (18:26)
[2021-08-13] MEDS ORDERED: ONDANSETRON 4 MG/2 ML VIAL IV ONE (18:28)
[2021-08-13 18:45] LABS: Alanine Aminotransferase 10 U/L (13-56); Albumin 2.1 G/DL (3.4-5.0); Alkaline Phosphatase 99 U/L (45-117); Aspartate Amino Transferase 37 U/L (0-37); Bilirubin,Total < 0.39 MG/DL (0.20-1.00); Blood Urea Nitrogen 16 MG/DL (7-18); Calcium 7.9 MG/DL (8.5-10.1); Carbon Dioxide 31 MMOL/L (21-32); Estimated Glom Filtration Rate 83 ML/MIN; Glucose 100 MG/DL (74-106); Sodium 136 MMOL/L (136-145); Total Protein 5.1 G/DL (6.4-8.2)
[2021-08-13 19:42] LABS: Blood, Urine Negative (Negative); Glucose,Urine (UA) Negative (Negative); Ketones,Urine 20 mg/dL (Negative); Mucus,Urine Occasional /LPF (Occasional); Nitrite,Urine Negative (Negative); Protein,Urine 30 MG/DL; RBC,Urine 1 /HPF (0-4); Squamous Epithelial Cell,Urine Occasional /HPF (0-10); Urine Appearance CLEAR (Clear); Urine Color Amber (Yellow); Urine Urobilinogen < 2.0 EU/DL (0.2-1.0)
[2021-08-13 19:43] LABS: Bilirubin,Urine Small mg/dL (Negative)
[2021-08-13] MEDS ORDERED: ASPIRIN CHEW 81 MG TABLET PO STA (20:10)
[2021-08-13] MEDS ORDERED: POTASSIUM CHLORIDE 20 MEQ TABLET PO ONE (20:12)
[2021-08-13] MEDS ORDERED: MAGNESIUM SULF RIDER 2 GM/50 ML PREMIX IV ONE (20:12)
[2021-08-13] MEDS ORDERED: DEXTROSE 50% 25 GM/50 ML VIAL IV PRN (20:55)
[2021-08-13] MEDS ORDERED: GLUCAGON 1 MG VIAL IM PRN (20:55)
[2021-08-13] MEDS ORDERED: ACETAMINOPHEN 325 MG TABLET PO PRN (20:55)
[2021-08-13] MEDS ORDERED: ALBUTEROL 2.5 MG/3 ML NEB RESP TX PRN (21:09)
[2021-08-14] MEDS: LACTATED RINGERS 1,000 ML IV SCH ×2 (00:01→06:02)
[2021-08-14] MEDS: HEPARIN 5,000 UNIT/1 ML VIAL SUBCUT SCH ×3 (01:07→21:06)
[2021-08-14] MEDS ORDERED: MAGNESIUM SULF RIDER 4 GM/100 ML PREMIX IV PRN (02:16)
[2021-08-14] MEDS ORDERED: MAGNESIUM SULF RIDER 2 GM/50 ML PREMIX IV PRN (02:16)
[2021-08-14 06:03] LABS: Basophils # 0.1 10*3/uL (0.0-0.2); Basophils % 1.2 % (0.0-0.8); Eosinophils # 0.2 10*3/uL (0.0-0.87); Hemoglobin 13.1 GM/DL (12.0-16.0); Immature Granulocytes % 0.7 %; Immature Granulocytes Absolute 0.03 #; Lymphocytes # 1.2 10*3/uL (1.4-4.0); Lymphocytes % 29.9 % (21.3-54.2); Mean Corpuscular HGB Conc 32.8 GM/DL (32-36); Mean Corpuscular Volume 91.3 FL (87-102); Mean Platelet Volume 10.1 FL (9.6-12.0); Monocytes % 6.7 % (1.7-12.7); Neutrophils % 55.5 % (38.7-73.9); Platelet Count 169 T/CUMM (130-400); Red Blood Count 4.38 MC/CUMM (3.8-5.5); Red Cell Distribution Width 13.7 % (9.3-17.3)
[2021-08-14 06:18] LABS: Calcium 7.7 MG/DL (8.5-10.1); Osmolality,Calculated 264.4 MOS/KG (273-304); Potassium 2.9 MMOL/L (3.5-5.1)
[2021-08-14] MEDS: carBAMazepine 200 MG TABLET PO SCH (08:05)
[2021-08-14] MEDS: POTASSIUM CHLORIDE RIDER 10 MEQ/100 ML PREMIX IV PRN ×4 (08:05→12:19)
[2021-08-14] MEDS: ASPIRIN EC 81 MG TABLET PO SCH (08:05)
[2021-08-14] MEDS: DEXT 5% LACT RING KCL 20 MEQ 20 MEQ/1,000 ML BAG IV SCH (14:46)
[2021-08-14] MEDS: PROMETHAZINE INJ 12.5 MG in SODIUM CHLORIDE 0.9% 50 ML IV PRN (21:04)
[2021-08-14] MEDS: ATORVASTATIN 40 MG TABLET PO SCH (21:06)
[2021-08-15] MEDS: DEXT 5% LACT RING KCL 20 MEQ 20 MEQ/1,000 ML BAG IV SCH ×2 (00:26→12:50)
[2021-08-15] MEDS: carBAMazepine 200 MG TABLET PO SCH ×3 (00:27→21:26)
[2021-08-15 05:51] LABS: Calcium 7.5 MG/DL (8.5-10.1); Osmolality,Calculated 275.5 MOS/KG (273-304); Potassium 3.4 MMOL/L (3.5-5.1)
[2021-08-15] MEDS ORDERED: MAGNESIUM SULF RIDER 4 GM/100 ML PREMIX IV PRN (08:09)
[2021-08-15] MEDS ORDERED: MAGNESIUM SULF RIDER 2 GM/50 ML PREMIX IV PRN (08:09)
[2021-08-15] MEDS ORDERED: MAGNESIUM SULF RIDER 2 GM/50 ML PREMIX IV ONE (08:22)
[2021-08-15] MEDS ORDERED: POTASSIUM CHLORIDE 20 MEQ TABLET PO ONE (08:23)
[2021-08-15] MEDS: ASPIRIN EC 81 MG TABLET PO SCH (09:43)
[2021-08-15] MEDS: HEPARIN 5,000 UNIT/1 ML VIAL SUBCUT SCH ×2 (09:43→21:26)
[2021-08-15] MEDS: MENTHOL/ZINC OXIDE OINT 71 GM JAR TOP SCH ×2 (14:30→21:26)
[2021-08-15] MEDS: PANTOPRAZOLE 40 MG TABLET PO SCH ×2 (14:30→21:26)
[2021-08-15] MEDS: ATORVASTATIN 40 MG TABLET PO SCH (21:26)
[2021-08-16] MEDS: DEXT 5% LACT RING KCL 20 MEQ 20 MEQ/1,000 ML BAG IV SCH ×3 (06:07→16:37)
[2021-08-16 06:37] LABS: Basophils % 0.6 % (0.0-0.8); Eosinophils # 0.3 10*3/uL (0.0-0.87); Eosinophils % 5.5 % (0.00-10.9); Hematocrit 30.8 VOL% (35.7-47.0); Immature Granulocytes % 0.4 %; Immature Granulocytes Absolute 0.02 #; Lymphocytes % 38.7 % (21.3-54.2); Mean Corpuscular HGB Conc 33.4 GM/DL (32-36); Mean Corpuscular Volume 89.8 FL (87-102); Mean Platelet Volume 9.6 FL (9.6-12.0); Monocytes % 8.2 % (1.7-12.7); Neutrophils % 46.6 % (38.7-73.9); Red Cell Distribution Width 14.2 % (9.3-17.3)
[2021-08-16 06:38] LABS: White Blood Count 5.3 T/CUMM (4-12)
[2021-08-16 06:39] LABS: Hemoglobin 10.3 GM/DL (12.0-16.0); Platelet Count 249 T/CUMM (130-400); Red Blood Count 3.43 MC/CUMM (3.8-5.5)
[2021-08-16 06:49] LABS: Alanine Aminotransferase < 9 U/L (13-56); Albumin 1.9 G/DL (3.4-5.0); Alkaline Phosphatase 92 U/L (45-117); Aspartate Amino Transferase 30 U/L (0-37); Blood Urea Nitrogen 2 MG/DL (7-18); Calcium 7.8 MG/DL (8.5-10.1); Carbon Dioxide 27 MMOL/L (21-32); Estimated Glom Filtration Rate 93 ML/MIN; Glucose 103 MG/DL (74-106); Osmolality,Calculated 270.7 MOS/KG (273-304); Potassium 3.7 MMOL/L (3.5-5.1); Sodium 138 MMOL/L (136-145)
[2021-08-16] MEDS: MENTHOL/ZINC OXIDE OINT 71 GM JAR TOP SCH ×2 (09:50→21:42)
[2021-08-16] MEDS ORDERED: PROMETHAZINE 25 MG/1 ML VIAL ONE (10:13)
[2021-08-16] MEDS: ASPIRIN EC 81 MG TABLET PO SCH (10:20)
[2021-08-16] MEDS: carBAMazepine 200 MG TABLET PO SCH ×2 (10:20→21:41)
[2021-08-16] MEDS: MULTIVITAMIN (CENTRUM) TABLET PO SCH (10:20)
[2021-08-16] MEDS: PANTOPRAZOLE 40 MG TABLET PO SCH ×2 (10:20→21:41)
[2021-08-16] MEDS: PROMETHAZINE INJ 12.5 MG in SODIUM CHLORIDE 0.9% 50 ML IV PRN (10:40)
[2021-08-16] MEDS: HEPARIN 5,000 UNIT/1 ML VIAL SUBCUT SCH ×2 (10:40→21:37)
[2021-08-16] MEDS: ONDANSETRON 4 MG/2 ML VIAL IV PRN (14:59)
[2021-08-16] MEDS: ATORVASTATIN 40 MG TABLET PO SCH (21:41)
[2021-08-17] MEDS: DEXT 5% LACT RING KCL 20 MEQ 20 MEQ/1,000 ML BAG IV SCH ×3 (02:17→23:04)
[2021-08-17 04:46] LABS: Albumin 1.9 G/DL (3.4-5.0); Bilirubin,Total 1.1 MG/DL (0.20-1.00); Calcium 7.7 MG/DL (8.5-10.1); Potassium 4.6 MMOL/L (3.5-5.1); Total Protein 4.8 G/DL (6.4-8.2)
[2021-08-17] MEDS ORDERED: MAGNESIUM SULF RIDER 2 GM/50 ML PREMIX IV ONE (08:08)
[2021-08-17] MEDS: HEPARIN 5,000 UNIT/1 ML VIAL SUBCUT SCH ×2 (09:43→21:43)
[2021-08-17] MEDS: carBAMazepine 200 MG TABLET PO SCH ×2 (09:45→21:43)
[2021-08-17] MEDS: MULTIVITAMIN (CENTRUM) TABLET PO SCH (09:45)
[2021-08-17] MEDS: PANTOPRAZOLE 40 MG TABLET PO SCH ×2 (09:45→21:43)
[2021-08-17] MEDS: ASPIRIN EC 81 MG TABLET PO SCH (09:45)
[2021-08-17] MEDS: MENTHOL/ZINC OXIDE OINT 71 GM JAR TOP SCH ×2 (10:09→21:42)
[2021-08-17] MEDS: ATORVASTATIN 40 MG TABLET PO SCH (21:43)
[2021-08-18 08:59] LABS: Basophils % 0.9 % (0.0-0.8); Eosinophils # 0.4 10*3/uL (0.0-0.87); Eosinophils % 8.1 % (0.00-10.9); Hematocrit 32.5 VOL% (35.7-47.0); Hemoglobin 10.7 GM/DL (12.0-16.0); Immature Granulocytes % 0.4 %; Immature Granulocytes Absolute 0.02 #; Lymphocytes # 1.7 10*3/uL (1.4-4.0); Lymphocytes % 35.3 % (21.3-54.2); Mean Corpuscular HGB Conc 32.9 GM/DL (32-36); Mean Corpuscular Volume 91.8 FL (87-102); Mean Platelet Volume 9.3 FL (9.6-12.0); Monocytes % 9.4 % (1.7-12.7); Neutrophils % 45.9 % (38.7-73.9); Platelet Count 263 T/CUMM (130-400); Red Blood Count 3.54 MC/CUMM (3.8-5.5); Red Cell Distribution Width 14.5 % (9.3-17.3); White Blood Count 4.7 T/CUMM (4-12)
[2021-08-18 09:21] LABS: Calcium 8.1 MG/DL (8.5-10.1); Osmolality,Calculated 265.1 MOS/KG (273-304); Potassium 4.7 MMOL/L (3.5-5.1)
[2021-08-18] MEDS: HEPARIN 5,000 UNIT/1 ML VIAL SUBCUT SCH ×2 (09:47→22:29)
[2021-08-18] MEDS: ONDANSETRON 4 MG/2 ML VIAL IV PRN (09:48)
[2021-08-18] MEDS: DEXT 5% LACT RING KCL 20 MEQ 20 MEQ/1,000 ML BAG IV SCH ×2 (09:48→17:12)
[2021-08-18] MEDS: MENTHOL/ZINC OXIDE OINT 71 GM JAR TOP SCH ×2 (10:26→22:28)
[2021-08-18] MEDS: carBAMazepine 200 MG TABLET PO SCH ×2 (10:27→22:28)
[2021-08-18] MEDS: amLODIPine 10 MG TABLET PO SCH (10:27)
[2021-08-18] MEDS: ASPIRIN EC 81 MG TABLET PO SCH (10:27)
[2021-08-18] MEDS: MULTIVITAMIN (CENTRUM) TABLET PO SCH (10:27)
[2021-08-18] MEDS: PANTOPRAZOLE 40 MG TABLET PO SCH ×2 (10:27→22:28)
[2021-08-18] MEDS: ATORVASTATIN 40 MG TABLET PO SCH (22:28)
[2021-08-19] MEDS: DEXT 5% LACT RING KCL 20 MEQ 20 MEQ/1,000 ML BAG IV SCH ×2 (03:29→16:45)
[2021-08-19 06:50] LABS: Basophils % 0.6 % (0.0-0.8); Eosinophils # 0.5 10*3/uL (0.0-0.87); Eosinophils % 9.4 % (0.00-10.9); Hematocrit 32.6 VOL% (35.7-47.0); Hemoglobin 10.4 GM/DL (12.0-16.0); Immature Granulocytes % 0.4 %; Immature Granulocytes Absolute 0.02 #; Lymphocytes % 41.7 % (21.3-54.2); Mean Corpuscular HGB Conc 31.9 GM/DL (32-36); Mean Corpuscular Volume 92.6 FL (87-102); Mean Platelet Volume 9.6 FL (9.6-12.0); Neutrophils % 38.9 % (38.7-73.9); Platelet Count 249 T/CUMM (130-400); Red Blood Count 3.52 MC/CUMM (3.8-5.5); Red Cell Distribution Width 14.7 % (9.3-17.3); White Blood Count 4.9 T/CUMM (4-12)
[2021-08-19 07:01] LABS: Calcium 8.5 MG/DL (8.5-10.1); Osmolality,Calculated 270.7 MOS/KG (273-304); Potassium 4.9 MMOL/L (3.5-5.1)
[2021-08-19 08:46] LABS: % Iron Saturation 53.3 % (18-50)
[2021-08-19 08:57] LABS: Folate 4.51 NG/ML (5.38-24.0)
[2021-08-19] MEDS: LACTATED RINGERS 1,000 ML IV SCH ×2 (10:25→13:30)
[2021-08-19] MEDS: HEPARIN 5,000 UNIT/1 ML VIAL SUBCUT SCH ×2 (10:25→20:46)
[2021-08-19] MEDS: MENTHOL/ZINC OXIDE OINT 71 GM JAR TOP SCH ×2 (10:25→20:46)
[2021-08-19] MEDS ORDERED: propofoL 200 MG/20 ML VIAL IV ONE (13:51)
[2021-08-19] MEDS ORDERED: LIDOCAINE 2% 5 ML VIAL ONE (13:51)
[2021-08-19] MEDS: ASPIRIN EC 81 MG TABLET PO SCH (15:00)
[2021-08-19] MEDS: PANTOPRAZOLE 40 MG TABLET PO SCH ×2 (15:00→20:46)
[2021-08-19] MEDS: amLODIPine 10 MG TABLET PO SCH (15:00)
[2021-08-19] MEDS: MULTIVITAMIN (CENTRUM) TABLET PO SCH (15:00)
[2021-08-19] MEDS: carBAMazepine 200 MG TABLET PO SCH ×2 (15:00→20:46)
[2021-08-19] MEDS: CYPROHEPTADINE 4 MG TABLET PO SCH (20:46)
[2021-08-19] MEDS: ATORVASTATIN 40 MG TABLET PO SCH (20:46)
[2021-08-20] MEDS: DEXT 5% LACT RING KCL 20 MEQ 20 MEQ/1,000 ML BAG IV SCH ×2 (02:25→10:49)
[2021-08-20] MEDS: LACTATED RINGERS 1,000 ML IV SCH (08:00)
[2021-08-20] MEDS: carBAMazepine 200 MG TABLET PO SCH (09:08)
[2021-08-20] MEDS: PANTOPRAZOLE 40 MG TABLET PO SCH (09:08)
[2021-08-20] MEDS: MULTIVITAMIN (CENTRUM) TABLET PO SCH (09:08)
[2021-08-20] MEDS: amLODIPine 10 MG TABLET PO SCH (09:09)
[2021-08-20] MEDS: HEPARIN 5,000 UNIT/1 ML VIAL SUBCUT SCH (09:09)
[2021-08-20 09:10] LABS: Calcium 8.7 MG/DL (8.5-10.1); Potassium 4.7 MMOL/L (3.5-5.1)
[2021-08-20] MEDS: MENTHOL/ZINC OXIDE OINT 71 GM JAR TOP SCH (09:15)
[2021-08-20] MEDS: CYPROHEPTADINE 4 MG TABLET PO SCH (09:15)
[2021-08-20] MEDS: ASPIRIN EC 81 MG TABLET PO SCH (09:15)
[2021-08-20 11:57] VITALS: BP 140/81
[2021-08-20] MEDS ORDERED: FOLIC ACID 1 MG TABLET PO SCH (21:00)
== END 2021-08-20 15:07 | DRG 313 ==
LOC: EDUNIT# → EDBD → N.EDINP 18:02 → N.ED 18:02 → SUATTDRO 20:10 → N.TELES 08-14 00:12 → N.EDINP 08-14 00:16
PROVIDERS: ADMIT Internal Medicine; ATTEND Internal Medicine